=== PATIENT | male | born 1985 | race Caucasian/White ===

== ENCOUNTER 2018-01-18 11:58 | Emergency (ER) | payer MEDICAID ==
[~2018-01-18] VITALS: Ht 180.3 cm; Wt 103.6 kg
[2018-01-18 12:07] VITALS: Ht 180.3 cm; Wt 103.6 kg
[2018-01-18 13:06] LABS: BASOPHILS 0.7 % (0-2); EOSINOPHILS 4.1 % (0-7); HEMATOCRIT 42.3 % (42.0-54.0); HEMOGLOBIN 14.8 g/dL (13.5-17.5); IMMATURE GRANULOCYTES 0.4 % (0-5); LYMPHOCYTES 23.4 % (15-50); MCV 82.9 fL (80.0-100.0); MEAN PLATELET VOLUME 10.6 fL (7.4-10.4); NEUTROPHILS 63.4 % (40-80); PLATELET COUNT 199 10x3/uL (130-400); RDW 12.6 % (11.5-14.5)
[2018-01-18 13:18] LABS: APPEARANCE SLT CLOUDY (CLEAR); BILIRUBIN NEGATIVE (NEGATIVE); COLOR YELLOW (YELLOW); GLUCOSE NEGATIVE (NEGATIVE); KETONE NEGATIVE (NEGATIVE); NITRITE NEGATIVE (NEGATIVE); PROTEIN NEGATIVE (NEGATIVE); SPECIFIC GRAVITY 1.025 (1.005-1.020); UROBILINOGEN NORMAL (NORMAL)
[2018-01-18 13:19] LABS: BACTERIA FEW /hpf (NONE SEEN); EPITHELIAL CELLS 0-5 /hpf (0-5); MUCUS >1+ /lpf (NONE SEEN); RED CELLS - URINE 0-5 /hpf (0-5); SPERMATOZOA PRESENT /hpf (NONE SEEN)
[2018-01-18 13:27] LABS: ALBUMIN 3.5 g/dL (3.4-5.0); ALKALINE PHOSPHATASE 105 U/L (46-116); ALT (SGPT) 22 U/L (10-68); BILIRUBIN - TOTAL 0.54 mg/dL (0.2-1.3); CALC OSMOLALITY 278 mosm/kg (275-300); CALCIUM 8.6 mg/dL (8.5-10.1); CARBON DIOXIDE 30.7 mmol/L (21.0-32.0); CHLORIDE - SERUM 104 mmol/L (98-107); CREATININE - SERUM 1.1 mg/dL (0.6-1.3); GLUCOSE 113 mg/dL (74-106); POTASSIUM - SERUM 3.8 mmol/L (3.5-5.1); PROTEIN - SERUM 7.1 g/dL (6.4-8.2); SODIUM 139 mmol/L (136-145); UREA NITROGEN 12 mg/dL (7-18); eGFR NON AFRICAN AMERICAN 82 mL/min (90-120)
[2018-01-18 13:48] LABS: CREATINE KINASE 272 UL (21-232)
[2018-01-18] MEDS ORDERED: CYCLOBENZAPRINE10 MG PO (13:58)
[2018-01-18] MEDS ORDERED: CIPRO500 MG PO (13:58)
[2018-01-18 14:26] VITALS: BP 124/76
== END 2018-01-18 14:29 | disposition home or self-care (01) ==
LOC: D.ER 11:58
PROVIDERS: Family Medicine
DX: M62.830 Muscle spasm of back (principal); N39.0 Urinary tract infection, site not specified; J45.909 Unspecified asthma, uncomplicated; K21.9 Gastro-esophageal reflux disease without esophagitis; F17.200 Nicotine dependence, unspecified, uncomplicated

== ENCOUNTER 2018-10-12 22:35 | Emergency (ER) | payer MEDICAID ==
[~2018-10-12] VITALS: Ht 180.3 cm; Wt 90.9 kg
[~2018-10-12 22:35] MED LIST: CIPRO500 MG PO; CYCLOBENZAPRINE10 MG PO
[2018-10-12 22:44] VITALS: BP 132/78; Ht 180.3 cm; Wt 90.9 kg
[2018-10-12] MEDS ORDERED: ADVAIR HFA 230-12 GM (22:46)
[2018-10-12] MEDS ORDERED: TOPAMAX15 MG (22:46)
[2018-10-13 01:13] LABS: APPEARANCE HAZY (CLEAR); BILIRUBIN NEGATIVE (NEGATIVE); COLOR YELLOW (YELLOW); GLUCOSE NEGATIVE (NEGATIVE); KETONE NEGATIVE (NEGATIVE); NITRITE NEGATIVE (NEGATIVE); PROTEIN NEGATIVE (NEGATIVE); SPECIFIC GRAVITY 1.025 (1.005-1.020)
== END 2018-10-13 02:02 | disposition left against medical advice (07) ==
LOC: D.ER 22:35
PROVIDERS: Family Medicine
DX: M62.830 Muscle spasm of back (principal); N39.0 Urinary tract infection, site not specified